=== PATIENT | male | born 1940 | race Caucasian/White ===

== ENCOUNTER 2018-01-12 05:22 | Inpatient (IN) | payer MEDICARE ==
[2018-01-12] MEDS ORDERED: Nitroglycerin 2% Ointment 1 INCH/1 GM Packet ONE (05:53)
[2018-01-12 06:07] LABS: #Eosinphils 0.2 thou/uL (0.0-0.7); #Lymphocytes 1.1 thou/uL (1.20-3.40); #Monocytes 0.7 thou/uL (0.11-0.59); #Neutrophils 4.1 thou/uL (1.40-6.50); %Basophils 0.3 % (0.0-1.0); %Eosinophils 3.5 % (0.0-10.0); %Lymphocytes 17.7 % (21.0-51.0); %Monocytes 11.8 % (0.0-10.0); %Neutrophils 66.7 % (42.0-75.0); Hemoglobin 13.9 g/dL (14.0-18.0); Mean Corpuscular HGB CONC 32.9 g/dL (32.0-36.0); Mean Corpuscular Hemoglobin 30.7 pg (27.0-31.0); Mean Corpuscular Volume 93.2 fl (80.0-94.0); Mean Platelet Volume 7.2 fL (7.4-10.4); Platelet Count 155 thou/uL (130-400); RBC Distribution Width 12.8 % (11.5-14.5); Red Blood Cell (RBC) Count 4.52 mill/uL (4.70-6.10); White Blood Cell (WBC) Count 6.2 thou/uL (4.8-10.8)
[2018-01-12 06:11] LABS: PTT 30.8 SEC (22.9-36.1); Prothrombin Time 13.7 SEC (12.0-14.7)
[2018-01-12 06:25] LABS: ALT (SGPT) 12 U/L (8-55); AST (SGOT) 12 U/L (5-34); Albumin 3.7 g/dL (3.4-4.8); Alkaline Phosphatase 51 U/L (40-150); Anion Gap 11 mmol/L (10-20); BUN (Urea Nitrogen) 21 mg/dL (8.4-25.7); Bilirubin, Total 0.4 mg/dL (0.2-1.2); CK (CPK) 29 U/L (30-200); Calc. Creatinine Clearance 0 mL/min (70-130); Calcium 9.3 mg/dL (7.8-10.44); Carbon Dioxide 29 mmol/L (23-31); Chloride 104 mmol/L (98-107); Estimated GFR-MDRD 53; Globulin 3.3 g/dL (2.4-3.5); Glucose 146 mg/dL (83-110); Sodium 140 mmol/L (136-145)
[2018-01-12 06:30] LABS: Troponin I Less than 0.010 ng/mL (< 0.028)
--- NOTE | 2018-01-12 07:58 | CT ---
CT ARTERIOGRAM CHEST WITH IV CONTRAST AND 3D MIP IMAGING: Date: 01/12/18 HISTORY: Chest pain. Elevated D-Dimer. FINDINGS: There is good contrast opacification of the pulmonary arteries. Contrast has not yet reached the aort a. There is normal branching of the great vessels and arterial calcification. Within the superior segment of right lower lobe, a lobular 2.5 cm spiculated mass is of soft tissue d ensity and approaches the posterolateral pleura. A 0.5 cm noncalcified nodule is present within the r ight upper lobe. Peripheral interstitial thickening is present. No pleural fluid or pneumothorax. Non enlarged lymph nodes are scattered about the mediastinum. IMPRESSION: 1. No CT evidence of pulmonary embolus. 2. Large spiculated mass superior segment right lower lobe. Evidence of neoplasm, primary versus met astatic. Tiny right upper lobe nodule. Please consider pulmonary medicine evaluation. 3. Evidence of interstitial lung disease. 4. Atherosclerosis. POS: [facility]
--- NOTE | 2018-01-12 08:56 | RAD ---
CHEST 1 VIEW: Date: 01/12/18 HISTORY: Chest pain. FINDINGS: Cardiac silhouette is magnified by projection. Pulmonary vasculature is upper limits of normal. Retic ulonodular interstitial prominence is present throughout each lung. Mediastinum is midline with aorti c calcification. Oval opacity at the right mid to lower chest correlates with a spiculated mass on moran bsequently performed CT arteriogram chest. No evidence of pneumothorax. IMPRESSION: 1. Right lower lobe lung mass. Please see separate report regarding CT exam. 2. COPD. 3. Atherosclerosis. POS: [facility]
[2018-01-12] MEDS ORDERED: Dextrose 50% Abboject 50 ML SYRINGE SLOW IVP PRN (09:26)
[2018-01-12] MEDS ORDERED: Milk Of Magnesia 30 ML UDCUP PO PRN (09:26)
[2018-01-12] MEDS ORDERED: Nitroglycerin 0.4 MG TAB (25 Tab Bottle) SL PRN (09:26)
[2018-01-12] MEDS ORDERED: Acetaminophen 325 MG TAB PO PRN (09:26)
[2018-01-12] MEDS ORDERED: Loperamide HCl 2 MG CAP PO PRN (09:26)
[2018-01-12] MEDS ORDERED: HumaLOG 300 UNITS/3 ML VIAL SC PRN ×2 (09:26)
[2018-01-12] MEDS ORDERED: hydrALAZINE 20 MG/ML VIAL SLOW IVP PRN (09:26)
[2018-01-12] MEDS ORDERED: Eucerin (Mineral Oil/Petrolatum,White) 30 gm Jar TOP PRN (09:26)
[2018-01-12] MEDS ORDERED: Zolpidem Tartrate 5 MG TAB PO PRN (09:26)
[2018-01-12] MEDS ORDERED: Ondansetron ODT 4 MG TAB PO PRN (09:26)
[2018-01-12] MEDS ORDERED: Diabetic Tussin 200 MG/10 ML UDCUP PO PRN (09:26)
[2018-01-12] MEDS ORDERED: Mag-Al 1200 mg/1200 mg/30 ML UDCUP PO PRN (09:26)
[2018-01-12] MEDS ORDERED: Chloraseptic Spray 180 ml Bottle PO PRN (09:26)
[2018-01-12] MEDS ORDERED: Senokot 8.6 MG TAB PO PRN (09:26)
[2018-01-12] MEDS ORDERED: Sodium Chloride 0.65% Nasal 44 ML BOT EA NARE PRN (09:26)
[2018-01-12] MEDS ORDERED: Artificial Tears 18 DROP/0.9 ML EA EYE PRN (09:26)
[2018-01-12] MEDS ORDERED: Loratadine 10 MG TAB PO PRN (09:26)
[2018-01-12] MEDS ORDERED: Ondansetron HCl/PF 4 MG/2 ML Vial IVP PRN (09:26)
[2018-01-12] MEDS ORDERED: Dextrose 5% in Water 1,000 ML IV PRN (09:26)
[2018-01-12 09:45] LABS: Troponin I Less than 0.010 ng/mL (< 0.028)
[2018-01-12 09:51] LABS: Cardiac Risk 4.4 (Less than 4.5)
[2018-01-12] MEDS ORDERED: Aspirin 325 MG TAB PO SCH (10:00)
--- NOTE | 2018-01-12 11:45 | HP ---
PRIMARY CARE PHYSICIAN: Dr. David Bajwa. REASON FOR ADMISSION: Left shoulder pain, rule out acute coronary syndrome, new diagnosis of right l ower lobe lung mass. HISTORY OF PRESENT ILLNESS: A 77-year-old male who has underlying history of peripheral vascular dis ease with carotid stenosis as well as abdominal aortic aneurysm, hypertension, diabetes type 2, dysli pidemia, and coronary artery disease who presented to emergency room with complaint of left shoulder pain for the last 2-3 days. The patient was having persistently left shoulder pain about 2-3/10 in i ntensity, so he was ignoring his symptoms. The patient's shoulder pain has nothing to do with the mo vement of the shoulder. He was experiencing dull aching pain all the time, he was able to sleep, but whenever he was waking up, he was again noticing left shoulder pain. Last night, he was having more severe pain about 7/10 in intensity as well as left shoulder pain radiated to elbow level and that i s why he was concerned about heart and decided to come to the emergency room for evaluation. Patient noted improvement with nitroglycerin. He did not have any chest pain, shortness of breath, palpitat ion, fever, chills, cough, trauma. He denies any UTI symptoms. He denies any constipation, diarrhea , melena or hematochezia. He denies any headache, focal motor or sensory symptoms. He denies any paresthesia. He denies any slurred speech. He denies any flu-like symptoms. In the emergency room, the patient was given nitroglycerin and he had improvement in the left shoulde r pain and considering that, we are trying to admit this patient in hospital for observation to rule out cardiac etiology. He had elevated D-dimer and that is why CT angio was done, which showed right lower lobe lung mass. Patient denies any cough. He denies any hemoptysis. He denies any weight loss. He denies any pleur itic chest pain. PAST MEDICAL HISTORY: Diabetes type 2, hypertension, dyslipidemia, coronary artery disease, history of CVA, history of abdominal aortic aneurysm, history of carotid stenosis, sensorineural deafness, be nign enlargement of prostate. PAST SURGICAL HISTORY: Carotid artery stent placement and subsequently carotid artery rupture requir ed surgery, cardiac catheterization with stent placement. PAST PSYCHIATRIC HISTORY: Reviewed and negative. SOCIAL HISTORY: Patient was a heavy smoker in the past, but he quit smoking about 3 years ago. He w as also alcoholic, but he quit drinking for about 5 years. He lives in [facility] living [facility]. He currently denies any smoking. He denies any alcohol abuse. He denies any other illici t drug abuse. He is and lives with his . FAMILY HISTORY: No strong family history of premature coronary artery disease, stroke or cancer. EMERGENCY ROOM COURSE: Patient is given nitropatch. CURRENT HOME MEDICATIONS: Aspirin 81 mg p.o. daily, lisinopril 20 mg p.o. daily, Plavix 75 mg p.o. d aily, Lipitor 20 mg p.o. daily, metoprolol tartrate 25 mg twice daily, glipizide 7.5 mg p.o. daily, F mel 0.4 mg p.o. daily, vitamin B1 100 mg p.o. daily, vitamin D3 1000 unit p.o. daily. ALLERGIES: No known drug allergy. REVIEW OF SYSTEMS: The following complete review of systems was negative, unless otherwise mentioned in the HPI or below: Constitutional: Weight loss or gain, ability to conduct usual activities. Skin: Rash, itching. Eyes: Double vision, pain. ENT/Mouth: Nose bleeding, neck stiffness, pain, tenderness. Cardiovascular: Palpitations, dyspnea on exertion, orthopnea. Respiratory: Shortness of breath, wheezing, cough, hemoptysis, fever or night sweats. Gastrointestinal: Poor appetite, abdominal pain, heartburn, nausea, vomiting, constipation, or diarr hea. Genitourinary: Urgency, frequency, dysuria, nocturia. Musculoskeletal: Pain, swelling. Neurologic/Psychiatric: Anxiety, depression. Allergy/Immunologic: Skin rash, bleeding tendency. Please see my HPI for pertinent positive and negative. All other review of system reviewed and negat manuel except as mentioned in HPI. PHYSICAL EXAMINATION: VITAL SIGNS: Currently, blood pressure 146/84, pulse 70, respiratory rate 18, temperature 98.2, satu ration 96% on room air, weight 83.9 kilograms. GENERAL: Patient is currently alert, awake, no obvious acute distress. HEENT: Head is normocephalic, atraumatic. Eyes: Pupils round, reactive to light. Extraocular musc le intact. ENT: Oropharynx within normal limits. Moist mucous membranes. No oral lesion, no phary ngeal erythema, no exudate. NECK: Supple, no JVD, no thyromegaly, no carotid bruit, no jugular venous distention. LUNGS: Clear to auscultation without any rhonchi or rales. CARDIAC: S1, S2 regular. No murmur elicited, no gallop, no rub. ABDOMEN: Soft, bowel sounds present, nontender, nondistended. No organomegaly, no mass, no suprapub ic tenderness. BACK: Unremarkable, no CVA tenderness. EXTREMITIES: Upper extremity, passive movement of all joints are normal. Lower extremity, no edema . Good peripheral pulsation. SKIN: No skin rash. HEMATOLOGIC: No lymphadenopathy. PSYCHIATRIC: Normal affect. NEUROLOGIC: Nonfocal examination. The patient moves all 4 limbs. Plantar bilateral flexor. PSYCHIATRIC: Normal affect. SIGNIFICANT LABORATORY DATA AND IMAGING: EKG showing normal sinus rhythm, nonspecific ST-T changes, incomplete right bundle branch block pattern. Chest x-ray showed right lower lobe lung mass, COPD, a therosclerosis. CT angio, negative for pulmonary embolism, large spiculated mass in the right lower lobe, interstitial lung disease, atherosclerosis. CBC: WBC 6.2, hemoglobin 13.9, platelet 155. INR 1.0. D-dimer 4.60. BMP: Sodium 140, potassium 4 .0, chloride 104, carbon dioxide 29, anion gap 11, BUN 21, creatinine 1.31, glucose 146, calcium 9.3. LFT: AST 12, ALT 12, alkaline phosphatase 51, albumin 3.7. BNP 279.8, CK 29, CK-MB 2.0, troponin I less than 0.010 and then less than 0.010. Lipase 17, triglyceride 110, cholesterol 141, LDL 87, HD L 32. ASSESSMENT AND PLAN: 1. Left shoulder pain, rule out acute coronary syndrome. This patient had improvement in left shoul ramandeep pain after nitroglycerin. The patient does not have any real chest pain. His left shoulder pain is not related with movement of the shoulder joint, does not suspect any local musculoskeletal patho logy. At this point, because of multiple risk factors for coronary artery disease and atypical prese ntation, we will keep this patient in hospital for observation. We will do serial cardiac enzymes an d rule out acute coronary syndrome. The patient is over concerned about cardiac etiology and that is why we will perform a Cardiolite stress test today to rule out underlying silent ischemia. We have checked lipid profile and that is optimum. Patient will be continued with aspirin and nitroglycerin on p.r.n. basis. 2. Right lower lobe lung mass. Patient has spiculated lung mass. He is a heavy smoker in the past. At this point, the patient is asymptomatic, but needs to be worked up and he will need a follow up with the awning erector while in hospital, we will consult Pulmonary for their opinion. Further inves tigation will defer to them. The patient and family member notified about this diagnosis and advised them to follow up with Pulmonary after discharge as well. 3. Peripheral vascular disease. Patient has history of carotid stenosis as well as abdominal aortic aneurysm. The patient has followup appointment with Dr. Wojciech Ferguson next week and he has instruct ed to maintain follow up with him for further evaluation. He may need a repeat CT angiography to see the status of his carotid stenosis. 4. Diabetes type 2. We will continue glipizide 7.5 mg p.o. daily while in hospital. We will contin ue insulin as per sliding scale per protocol. Diabetic diet will be given. 5. Dyslipidemia. Lipid profile is at normal limit. Continue Lipitor 20 mg p.o. at bedtime. 6. Chronic kidney disease stage 3. We will monitor renal function and avoid nephrotoxin agent. 7. Elevated D-dimer, but negative CT angio and ruled out pulmonary embolism. 8. Elevated BNP. Patient will need echocardiography to assess ejection fraction and other structura l abnormality. 9. Benign enlargement of prostate. We will continue Flomax 0.4 mg p.o. daily. 10. Deep venous thrombosis prophylaxis not needed, because we are expecting discharge in 24-48 hours . 11. Gastrointestinal prophylaxis, Pepcid 20 mg p.o. b.i.d. 12. Code status: The patient is FULL CODE. The patient's is surrogate decision maker. Disposition and plan based on clinical course and above-mentioned investigation result as well as pul monary recommendation.
[2018-01-12 12:18] LABS: Troponin I Less than 0.010 ng/mL (< 0.028)
[2018-01-12] MEDS ORDERED: ADENOSINE 60 MG/20 ML VIAL ONE (13:23)
[2018-01-12] MEDS ORDERED: Prevnar 13-Val Conj/PF 0.5 ML SYRINGE IM ONE (14:30)
[2018-01-12] MEDS ORDERED: ISOVUE-370 76%-LOCM 1 ML ONE (14:35)
[2018-01-12] MEDS: HYDROcodone/Acetaminophen 5/325 mg Tablet PO PRN ×2 (14:53→21:06)
[2018-01-12] MEDS ORDERED: Lisinopril 20 MG TAB PO SCH (18:15)
[2018-01-12] MEDS ORDERED: Metoprolol Tartrate 25 MG TAB PO SCH (18:15)
--- NOTE | 2018-01-12 18:15 | NM ---
RADIONUCLIDE STRESS AND REST MYOCARDIAL PERFUSION SCAN WITH CT ATTENUATION CORRECTION WITH SPECT IMAG ING LEFT VENTRICULAR WALL MOTION EVALUATION AND EJECTION FRACTION 01/12/18 HISTORY: Chest pain. FINDINGS: Adenosine protocol was used. There is heterogeneous uptake of radiotracer throughout the left ventric ular myocardium. A moderate sized area of moderately diminished radiotracer uptake involves the infer olateral wall on the stress and rest images and shows some decrease in motion. No reversibility is ev ident. QGS analysis of gated SPECT images estimates left ventricular ejection fraction at 56%. IMPRESSION: 1. Small to moderate sized areas of scarring at the inferolateral wall without evidence of ische jelani. 2. Preserved LVEF. POS: [facility]
[2018-01-12] MEDS: Nitroglycerin 2% Ointment 1 INCH/1 GM Packet TOP SCH (21:07)
[2018-01-12] MEDS: Famotidine 20 MG TAB PO SCH (21:07)
[2018-01-13 03:44] VITALS: BMI 28.7
[2018-01-13] MEDS: Nitroglycerin 2% Ointment 1 INCH/1 GM Packet TOP SCH (05:41)
[2018-01-13] MEDS: HYDROcodone/Acetaminophen 5/325 mg Tablet PO PRN (08:59)
[2018-01-13] MEDS ORDERED: Lisinopril 20 MG TAB PO SCH (09:00)
[2018-01-13] MEDS ORDERED: Metoprolol Tartrate 25 MG TAB PO SCH (09:00)
[2018-01-13] MEDS ORDERED: hydrALAZINE 25 MG TAB PO SCH (09:00)
[2018-01-13] MEDS ORDERED: Aspirin 325 MG TAB PO SCH (09:00)
[2018-01-13] MEDS: Famotidine 20 MG TAB PO SCH (09:01)
--- NOTE | 2018-01-13 09:45 | PDOC.PN ---
- Subjective Encounter Start Date: 01/13/18 Encounter Start Time: 08:30 - Objective Resuscitation Status: Resuscitation Status FULL:Full Resuscitation MAR Reviewed: Yes Vital Signs & Weight: Vital Signs (12 hours) Temp Pulse Resp BP BP Pulse Ox 01/13/18 09:01 83 165/83 H 01/13/18 08:58 165/83 H 01/13/18 08:00 96.9 F L 83 14 165/83 H 96 01/13/18 04:00 97.6 F 55 L 16 175/76 H 96 01/13/18 00:00 97.7 F 56 L 16 153/75 H 94 L Weight Weight 189 lb I&O: 01/12/18 01/13/18 01/14/18 06:59 06:59 06:59 Intake Total 1740 Output Total 400 Balance 1340 Result Diagrams: 01/12/18 05:55 01/12/18 05:55 Additional Labs: Accuchecks 01/13/18 01/12/18 06:04 20:03 POC Glucose 172 H 231 H Radiology Reviewed by me: Yes (stress test is normal) EKG Reviewed by me: Yes (nsr) Phys Exam - Physical Examination Constitutional: NAD HEENT: PERRLA, moist MMs, sclera anicteric Neck: no JVD, supple Respiratory: no wheezing, no rales, no rhonchi Cardiovascular: RRR, no significant murmur, no rub Gastrointestinal: soft, non-tender, no distention, positive bowel sounds Musculoskeletal: no edema, pulses present Neurological: non-focal, normal sensation, moves all 4 limbs Lymphatic: no nodes Psychiatric: normal affect, A&O x 3 Skin: no rash, normal turgor Dx/Plan (1) Left shoulder pain Code(s): M25.512 - PAIN IN LEFT SHOULDER Status: Acute (2) Right lower lobe lung mass Code(s): R91.8 - OTHER NONSPECIFIC ABNORMAL FINDING OF LUNG FIELD Status: Acute (3) BPH (benign prostatic hyperplasia) Code(s): N40.0 - BENIGN PROSTATIC HYPERPLASIA WITHOUT LOWER URINRY TRACT SYMP Status: Chronic (4) CAD (coronary artery disease) Code(s): I25.10 - ATHSCL HEART DISEASE OF [place] CORONARY ARTERY W/O ANG PCTRS Status: Chronic (5) Diabetes type 2, controlled Code(s): E11.9 - TYPE 2 DIABETES MELLITUS WITHOUT COMPLICATIONS Status: Chronic (6) Dyslipidemia Code(s): E78.5 - HYPERLIPIDEMIA, UNSPECIFIED Status: Chronic (7) Hypertension Code(s): I10 - ESSENTIAL (PRIMARY) HYPERTENSION Status: Chronic (8) PAD (peripheral artery disease) Code(s): I73.9 - PERIPHERAL VASCULAR DISEASE, UNSPECIFIED Status: Chronic - Plan cont current plan of care * medication reviewed as below * symptomatic treatment * add hydralazin and imdur for better BP control * if pulmonary not planning to do any procedure, he is stable for discharge later today * medication reviewed as below * symptomatic treatment. Review of Systems - Review of Systems ENT: negative: Ear Pain, Ear Discharge, Nose Pain, Nose Discharge, Nose Congestion, Mouth Pain, Mouth Swelling, Throat Pain, Throat Swelling, Other Respiratory: negative: Cough, Dry, Shortness of Breath, Hemoptysis, SOB with Excertion, Pleuritic Pain, Sputum, Wheezing Cardiovascular: negative: chest pain, palpitations, orthopnea, paroxysmal nocturnal dyspnea, edema, light headedness, other Gastrointestinal: negative: Nausea, Vomiting, Abdominal Pain, Diarrhea, Constipation, Melena, Hematochezia, Other Genitourinary: negative: Dysuria, Frequency, Incontinence, Hematuria, Retention , Other Musculoskeletal: negative: Neck Pain, Shoulder Pain, Arm Pain, Back Pain, Hand Pain, Leg Pain, Foot Pain, Other Skin: negative: Rash, Lesions, Aditya, Bruising, Other - Medications/Allergies Allergies/Adverse Reactions: Allergies Allergy/AdvReac Type Severity Reaction Status Date / Time No Known Drug Allergies Allergy Verified 01/12/18 09:50 Medications: Current Medications Acetaminophen (Tylenol) 650 mg PO Q4H PRN PRN Reason: Headache/Fever or Pain Hydrocodone Bitart/Acetaminophen ([place] 5/325) 1 tab PO Q4H PRN PRN Reason: Moderate Pain (4-6) Last Admin: 01/13/18 08:59 Dose: 1 tab Al Hydroxide/Mg Hydroxide (Maalox) 30 ml PO Q6H PRN PRN Reason: Heartburn or Indigestion Artificial Tears (Tears Naturale) 0 drop EA EYE PRN PRN PRN Reason: Dry Eyes Aspirin (Aspirin) 325 mg PO DAILY LATHA Last Admin: 01/13/18 08:58 Dose: 325 mg Dextrose/Water (Dextrose 50%) 25 gm SLOW IVP PRN PRN PRN Reason: Hypoglycemia Famotidine (Pepcid) 20 mg PO BID [facility] Last Admin: 01/13/18 09:01 Dose: 20 mg Glucagon (Glucagon) 1 mg IM PRN PRN PRN Reason: Hypoglycemia Guaifenesin (Robitussin Sf) 200 mg PO Q4H PRN PRN Reason: Cough Hydralazine HCl (Apresoline) 10 mg SLOW IVP Q4H PRN PRN Reason: Systolic BP > 180 Hydralazine HCl (Apresoline) 25 mg PO BID [facility] Last Admin: 01/13/18 09:01 Dose: 25 mg Dextrose/Water (D5w) 1,000 mls @ 0 mls/hr IV .Q0M PRN; As Directed PRN Reason: Hypoglycemia Insulin Human Lispro (Humalog) 0 units SC .MODERATE SLIDING SC PRN PRN Reason: Moderate Correctional Scale Insulin Human Lispro (Humalog) 0 units SC .BEDTIME SLIDING SC PRN PRN Reason: Bedtime Correctional Scale Lisinopril (Zestril) 20 mg PO BID [facility] Last Admin: 01/13/18 08:58 Dose: 20 mg Loperamide HCl (Imodium) 2 mg PO PRN PRN PRN Reason: Diarrhea/Loose Stools Loratadine (Claritin) 10 mg PO DAILYPRN PRN PRN Reason: Sinus Symptoms Magnesium Hydroxide (Milk Of Magnesium) 30 ml PO DAILYPRN PRN PRN Reason: Constipation Metoprolol Tartrate (Lopressor) 25 mg PO BID [facility] Last Admin: 01/13/18 08:59 Dose: 25 mg Mineral Oil/White Petrolatum (Eucerin Cream) 0 gm TOP BIDPRN PRN PRN Reason: Dry Skin Nitroglycerin (Nitrostat) 0.4 mg SL Q5MIN PRN PRN Reason: Chest Pain Nitroglycerin (Nitro-Bid 2% Ointment) 0.5 inch TOP Q8HR [facility] Last Admin: 01/13/18 05:41 Dose: 0.5 inch Ondansetron HCl (Zofran Odt) 4 mg PO Q6H PRN PRN Reason: Nausea/Vomiting Ondansetron HCl (Zofran) 4 mg IVP Q6H PRN PRN Reason: Nausea/Vomiting Phenol (Chloraseptic [place] 180 Ml Bot) 0 ml PO PRN PRN PRN Reason: Sore Throat Senna (Senokot) 2 tab PO HSPRN PRN PRN Reason: Constipation Sodium Chloride ([place] Nasal [place] 0.65%) 0 ml EA NARE QIDPRN PRN PRN Reason: Nasal Congestion Sodium Chloride (Flush - Normal Saline) 10 ml IVF PRN PRN PRN Reason: Saline Flush Last Admin: 01/13/18 09:02 Dose: 10 ml Zolpidem Tartrate (Ambien) 5 mg PO HSPRN PRN PRN Reason: Insomnia
--- NOTE | 2018-01-13 11:04 | DIS ---
PRIMARY CARE PHYSICIAN: David Bajwa M.D. DATE OF ADMISSION: 01/12/2018 DATE OF DISCHARGE: 01/13/2018 DISCHARGE DISPOSITION: Home. PRIMARY DISCHARGE DIAGNOSES: 1. Left shoulder pain, ruled out acute coronary syndrome. 2. Right lower lobe lung mass. SECONDARY DISCHARGE DIAGNOSES: Benign enlargement of prostate, coronary artery disease, peripheral a rterial disease, diabetes type 2, dyslipidemia, hypertension. PRIMARY PROCEDURE/OPERATION: None. RADIOLOGICAL INVESTIGATION: Chest x-ray showed right lower lobe lung mass. CT angiography negative for pulmonary embolism, it did show a spiculated lung mass. Stress test negative for any ischemia, i t showed only scar from previous CT. SIGNIFICANT LABORATORY DATA: Hemoglobin 13.9. INR 1.0. D-dimer 4.60. Cardiac enzymes negative x3. LDL 87. Creatinine 1.31. Electrolytes and LFT normal. DISCHARGE MEDICATIONS: Aspirin 81 mg p.o. daily, Lipitor 20 mg p.o. daily, vitamin D3 5000 unit p.o. at bedtime, Plavix 75 mg p.o. daily, vitamin B12 1000 mcg p.o. daily, glipizide 7.5 mg p.o. b.i.d., hydralazine 25 mg p.o. b.i.d., Imdur 30 mg p.o. daily, lisinopril 20 mg p.o. b.i.d., metoprolol 25 mg p.o. b.i.d., multivitamin 1 tablet p.o. daily, Flomax 0.4 mg p.o. at bedtime. CONTRAINDICATIONS: None. CODE STATUS: FULL CODE. INPATIENT CONSULTANTS: Dr. Mills was consulted while in hospital. TEST RESULTS PENDING ON DISCHARGE: None. ALLERGIES: No known drug allergy. DISCHARGE PLAN: Post hospital, the patient is instructed to follow up with Dr. Mills for evaluation o f lung mass. The patient is also instructed to follow with primary care physician. Patient already has appointment with Dr. Wojciech Ferguson for his carotid disease. HOSPITAL COURSE: A 77-year-old male who was having 3 days of left shoulder pain and it was pro-radia ting to elbow level and he was concerned about cardiac etiology and that is why he came to emergency room for evaluation. The patient's blood pressure was also running high at home. We did a necessary workup in the emergency room. His routine blood tests including cardiac enzymes were negative, but he had elevated D-dimer and that is why we did CT angio. Before that, we also did a chest x-ray that showed a suspicious right lower lobe lung mass that confirmed after CT angio, but no pulmonary embol ism. The patient was kept in hospital. We started his home medication and controlled his blood pres sure with adding new medication. The patient underwent stress test and that came back normal. At this point, we are waiting for Dr. Mills to see this patient for right lower lobe lung mass. If th ere is no plan while inpatient workup, then we will consider discharging him home with the above-ment ioned medication, but he will need outpatient follow up with gum rolling machine tender for further evaluation and treatment. Plan of care discussed with a family member. All new medication prescriptions sent to pharmacy.
--- NOTE | 2018-01-13 11:10 | CON ---
DATE OF CONSULTATION: 01/12/2018 HISTORY OF PRESENT ILLNESS: Fabricio Patel is a 77-year-old gentleman, who was admitted to the hospital with several-day history of left shoulder and arm pain. He denied any chest pain, denied any shortness of breath, coughing, wheezing, orthopnea, or PND. He has had previous history of known coronary artery disease , sees local [facility]edic [facility], had a [place] with multiple cardiac stents at least 5 apparently. His primary care doctor is Dr. Bajwa. He said he has smoked up to 2 packs a day, quit smoking 10 years ago, history of pneumonia, but no history of TB or asthma. CT chest angio was done, which shows a right lower lung mass, reason for consultation. Denies any weight loss, coughing, wheezing , orthopnea, or PND. He says on most days he can walk at least a block without getting markedly short of breath. He has history of significant peripheral vascular disease with carotid stenosis. PAST MEDICAL HISTORY: Diabetes, coronary artery disease, CVA, multiple apparently. PAST SURGICAL HISTORY: Included surgery on aortic aneurysm, stents x5; coronary artery disease with unresectable; history of sleep apnea, noncompliant. He was told by ENT physician, he could not wear a CPAP because of his nose issues. SOCIAL HISTORY: He is retired from the police department. He lives with a girlfriend over a year. MEDICATIONS: List of medicines, aspirin, lisinopril 20, Plavix 75, atorvastatin 20, metoprolol 25 two a day, glipizide 5, tamsulosin 0.4, vitamin D , iron. FAMILY HISTORY: Unremarkable. REVIEW OF SYSTEMS: A 10-point negative. PHYSICAL EXAMINATION: VITAL SIGNS: Sats are 98% on 2 liters, pulse 80 bp 120\74 respiratory rate of 18. CHEST: No wheezing or crackles. CARDIAC: Normal S1, normal S2. No gallops. ABDOMEN: Soft, no masses. NEUROLOGIC: He is awake, alert, responsive, moves all 4 extremities. EXTREMITIES: No edema. LABORATORY DATA: White count 6000, H&H and 13 and 42, platelet count is normal. Electrolytes are normal. Creatinine 1.3. IMAGING: His x-ray was reviewed, which shows some chronic scarring bibasally. There is ill-defined density in the right mid chest. \\ A CAT scan showed a right middle lung mass with some bibasilar interstitial markings. IMPRESSION AND PLAN: 1. Shoulder pain. 2. Coronary artery disease. 3. History of previous multiple cardiac stents. 4. Renal failure. 5. Sleep apnea. 6. Tobacco abuse. 7. Multiple cerebrovascular accidents. 8. Right lung mass, probably chronic obstructive pulmonary disease. Once workup for his chest pain, shoulder pain is resolved. Outpatient PET scan. Further recommendations after above. Discussed with the family as they arrive. This is a consultation note, 70 minutes of which 50% was spent on direct patient care. DOT
[2018-01-13 14:11] VITALS: BP 146/67; TEMP 97.8
--- NOTE | 2018-01-13 15:12 | PRG ---
DATE OF SERVICE: 01/13/2018 SUBJECTIVE: This morning, he is doing well. No chest pain, no shortness of breath. OBJECTIVE: VITAL SIGNS: His blood pressure is 165/83, pulse 83, sats are 96% on room air, and respirations 18. CHEST: Chest reveals decreased breath sounds, no wheezing. CARDIAC: Normal S1, S2, no gallops. ABDOMEN: Soft. No mass. IMPRESSION: 1. Chest pain. Stress test showed normal ejection fraction. 2. 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 PLAN: From pulmonary standpoint, he can discharge home. Follow up on an outpatient basis next week. He had scheduled an outpatient PET scan.
--- NOTE | 2018-01-15 13:35 | STRESS ---
Acquisition Time: 2018-01-12 15:37:54 Total Exercise Time: 00:04:00 Test Indications: CHEST PAIN Medications: Protocol: ADENOSINE Max HR: 095 BPM 65% of Pred: 144 BPM Max BP: 152/092 mmHG Max Work Load: 1.0 METS RESTING ECG: NORMAL SINUS RHYTHM AT 60 BPM WITH NON-SPECIFIC ST AND T-WAVE CHANGES SYMPTOMS: WORSENING OF LEFT ARM PAIN NORMAL BP RESPONSE ECTOPY: OCCASIONAL PAC'S ECG STRESS: NO SIGNIFICANT CHANGES INTERPRETATION: AWAIT NUCLEAR IMAGES FOR DEFINITIVE DIAGNOSIS Confirmed by OTILIO TEAGUE ([id number]) on 01/15/2018 1:35:12 PM Referred By: Michael BARLOW Confirmed By:OTILIO TEAGUE
== END 2018-01-13 14:30 | disposition home or self-care (01) | DRG 556 ==
LOC: ERS 05:22 → ERHOLD 08:51 → 2NO 12:52
PROVIDERS: ADMIT Internal Medicine; ATTEND Internal Medicine
DX: M25.512 Pain in left shoulder (principal); E11.22 Type 2 diabetes mellitus with diabetic chronic kidney disease; E11.51 Type 2 diabetes mellitus with diabetic peripheral angiopathy without gangrene; R91.8 Other nonspecific abnormal finding of lung field; I25.10 Atherosclerotic heart disease of native coronary artery without angina pectoris; N40.0 Benign prostatic hyperplasia without lower urinary tract symptoms; E78.5 Hyperlipidemia, unspecified; I10 Essential (primary) hypertension; I25.2 Old myocardial infarction; Z86.73 Personal history of transient ischemic attack (TIA), and cerebral infarction without residual deficits; Z87.891 Personal history of nicotine dependence; F10.21 Alcohol dependence, in remission; Z87.01 Personal history of pneumonia (recurrent); G47.30 Sleep apnea, unspecified; I12.9 Hypertensive chronic kidney disease with stage 1 through stage 4 chronic kidney disease, or unspecified chronic kidney disease; N18.3 Chronic kidney disease, stage 3 (moderate)
CPT/HCPCS: 36415; 36416; 71045; 71275; 78452; 80053; 80061; 82553; 83690; 83880; 84484; 85025; 85379; 85610; 85730; 93005; 93017; 93306; 94760; A9500; J0153

== ENCOUNTER 2018-01-24 12:13 | Outpatient (CLI) | payer MEDICARE ==
--- NOTE | 2018-01-24 16:05 | PET ---
NUCLEAR MEDICINE FDG PET CT: (Positron Emission Tomography) DATE: 01/24/18 HISTORY: 78-year-old male with primary lung cancer of the right lower lobe. COMPARISON: None. TECHNIQUE: IV injection F-18 Fluorodeoxyglucose (FDG) dose: 12.0 mCi PET and attenuation-correction CT performed from skull base to proximal thighs. FINDINGS: SUV (standard uptake value) numbers given are maximum SUV's: All SUVs are QCLR. The spiculated, noncalcified pulmonary mass in the superior segment of the right lower lobe measures approximately 2.5 cm in oblique AP dimension x 2 cm oblique transverse dimension, as measured on the image slices of the CT angiogram of 01/12/18. On the coronal reconstruction, the greatest oblique transverse dimension is approximately 3 cm. It is FDG-avid, with SUV of 7.0. There are no FDG-avid right hilar lymph nodes or mediastinal lymph nodes. There are no other FDG-avid suspicious lesions elsewhere in the chest, abdomen, pelvis, or neck. There is an endograft within an infrarenal abdominal aortic aneurysm measuring 6.7 cm oblique AP x 5. 4 cm transverse. Right thyroid nodule is not FDG-avid. IMPRESSION: 1. FDG-avid right lower lobe solitary pulmonary spiculated mass is evidence for primary lung cancer. 2. No evidence of metastatic hilar or mediastinal lymph nodes, and no distant metastasis. 3. T1c N0 M0, Stage IA. 4. A 6.7 cm abdominal aortic aneurysm containing an endograft. The caliber of the aneurysm is very large for one treated with an endograft, unless the endograft placement was very recent. If it was n ot very recent, then further workup for endoleak is recommended. EVER Tellez POS: [facility]
== END 2018-01-24 12:14 | disposition home or self-care (01) ==
LOC: PET 12:13
PROVIDERS: ATTEND Internal Medicine Pulmonary Disease
DX: C34.31 Malignant neoplasm of lower lobe, right bronchus or lung (principal); E11.9 Type 2 diabetes mellitus without complications; I71.4 Abdominal aortic aneurysm, without rupture
CPT/HCPCS: 78815; A9552

== ENCOUNTER 2018-02-12 14:00 | Inpatient (IN) | payer MEDICARE ==
[2018-02-13] MEDS ORDERED: CEFAZOLIN/Water 2 GM/20 ML SYRINGE ONE (06:20)
[2018-02-13] MEDS ORDERED: Fentanyl 250 MCG/5 ML VIAL ONE (06:57)
[2018-02-13] MEDS ORDERED: Promethazine HCl 25 MG/ML VIAL ONE (06:57)
[2018-02-13] MEDS ORDERED: Bupivacaine 0.25% HCL 30 ML VIAL ONE ×3 (07:18→11:49)
[2018-02-13] MEDS ORDERED: PHENYLEPHRINE-NS 100 MCG/ML 10 ML SYRINGE ONE ×2 (07:18→14:43)
[2018-02-13] MEDS ORDERED: Phenylephrine HCL 10 MG/ML VIAL ONE (07:18)
[2018-02-13] MEDS ORDERED: diphenhydrAMINE 50 MG/ML VIAL IVP PRN (07:30)
[2018-02-13] MEDS ORDERED: diphenhydrAMINE 50 MG/ML VIAL IM PRN (07:30)
[2018-02-13] MEDS ORDERED: traMADol HCl 50 MG TAB PO PRN ×2 (07:30)
[2018-02-13] MEDS ORDERED: diphenhydrAMINE 25 MG CAP PO PRN (07:30)
[2018-02-13] MEDS ORDERED: fentaNYL Citrate/PF 1,250 MCG, Bupivacaine 25 ML in Sodium Chloride 0.9% 250 ML 200 ML EPIDURAL SCH (07:30)
[2018-02-13] MEDS ORDERED: Promethazine HCl 25 MG/ML VIAL IM PRN (07:30)
[2018-02-13] MEDS ORDERED: Zolpidem Tartrate 5 MG TAB PO PRN (07:30)
[2018-02-13] MEDS ORDERED: HYDROcodone/Acetaminophen 5/325 mg Tablet PO PRN ×4 (07:30→12:55)
[2018-02-13] MEDS ORDERED: Naloxone HCl 0.4 mg/ml Vial IVP PRN (07:30)
[2018-02-13] MEDS ORDERED: Naloxone HCl 0.4 mg/ml Vial IV PRN (07:30)
[2018-02-13] MEDS ORDERED: Hydrocerin (Eucerin) Cream 120 gm Jar TOP PRN (07:30)
[2018-02-13] MEDS ORDERED: Bupivacaine 0.25% 10 ML VIAL EPIDURAL PRN (07:30)
[2018-02-13] MEDS ORDERED: Ondansetron HCl/PF 4 MG/2 ML Vial IVP PRN ×3 (07:30→12:55)
[2018-02-13] MEDS ORDERED: Promethazine HCl 25 MG SUPP PR PRN (07:30)
[2018-02-13] MEDS ORDERED: Promethazine HCl 25 MG/ML VIAL SLOW IVP PRN (10:04)
[2018-02-13] MEDS ORDERED: Morphine Sulfate 2 MG/ML SYRINGE SLOW IVP PRN (10:04)
--- NOTE | 2018-02-13 11:47 | RAD ---
CHEST ONE VIEW: HISTORY: Chest surgery. Followup. COMPARISON: 02/12/2018 FINDINGS: The cardiac silhouette is magnified and enlarged. The pulmonary vasculature are at the upper limits of normal. The mediastinum is midline with aortic calcification and a right subclavian central venou s catheter. Thoracostomy tubes over the right chest are present at the apex and base. Minimal resid ual right apical pneumothorax. IMPRESSION: 1. Postoperative changes, right chest. 2. Lines and tubes as detailed above. 3. Minimal right apical pneumothorax. POS: [facility]
[2018-02-13] MEDS ORDERED: Fentanyl 100 MCG/2 ML VIAL ONE (11:49)
[2018-02-13] MEDS ORDERED: Nitroglycerin 50 MG/250 ML BOT 250 ML IVPB PRN (12:55)
[2018-02-13] MEDS ORDERED: Phenylephrine 10 MG/NS 250 ML 250 ML IVPB PRN (12:55)
--- NOTE | 2018-02-13 13:03 | OP ---
DATE OF PROCEDURE: 02/13/2018 PREOPERATIVE DIAGNOSIS: Right lower lobe lung mass, PET positive. POSTOPERATIVE DIAGNOSIS: Right lower lobe lung mass, PET positive. PROCEDURE: Right lower lobectomy with mediastinal lymph node dissection. SURGEON: Wojciech Ferguson M.D. ANESTHESIA: General endotracheal. ESTIMATED BLOOD LOSS: 50 mL DRAINS: A 24-Guinean chest tubes x2. SPECIMENS: 1. Right lower lobe -- frozen section of the mass revealed non-small cell lung cancer with negative bronchial margin. 2. Levels 8, 9 and 10R lymph nodes. DESCRIPTION OF PROCEDURE: After consent was obtained, the patient was brought to the operating room and placed in supine on the operating room table. Appropriate anesthetic monitor was placed and gene ral endotracheal anesthesia was induced. Right subclavian central line was placed and secured this w ith a silk suture. Artery line was flushed with heparin saline. Patient was then placed in left lat eral decubitus position. Joints were appropriately padded. SCDs were used. Right chest wall was pr epped and draped in usual sterile fashion. Posterolateral thoracotomy incision was made and dissecti on through latissimus obtained with electrocautery. The serratus was spared. Serratus fascia was in cised. The fifth interspace was entered and ribs spread. Chest was explored. There were no chest w all masses. Right lower lobe mass was easily palpable. Hilum was released. Level 9 and 8 lymph nod es were taken and sent for routine pathology exam. On mobilizing the hilum, there was a level 10 lym ph node packet that was taken and sent for routine pathology. The pulmonary vein was isolated and di vided with vascular stapler. The posterior fissure was completed with a AILYN stapler. The two pulmon charline artery branches into the lower lobe were divided with vascular stapler. Anterior fissure was com pleted with electrocautery. The lower lobe bronchus was clamped with the stapler and the upper and m iddle lobes inflated nicely. Stapler was fired and specimen removed. Bronchial stump was tested und er 40 cm of water pressure and there was good water tight seal. Chest was copiously irrigated with water. A 24-Guinean chest tubes were placed x2. The ribs were ilana pproximated with #1 Vicryl. The lung was inflated and filled the chest cavity nicely. Pericostal moran tures were then tied. Wounds were irrigated, closed in multiple layers, and Dermabond applied to the skin. The patient was awakened, extubated, and transferred to recovery room in stable condition. N eedle, sponge, and instrument counts were all reported as correct at the end of the procedure.
[2018-02-13 13:18] VITALS: BMI 28.8
[2018-02-13] MEDS: Sodium Chloride 0.9% 1,000 ML IV SCH ×2 (13:34→21:49)
[2018-02-13] MEDS: hydrALAZINE 20 MG/ML VIAL SLOW IVP PRN (13:47)
[2018-02-13] MEDS ORDERED: Glycopyrrolate 0.2 MG/ML 5 ML SYRINGE ONE (14:43)
[2018-02-13] MEDS ORDERED: Dexamethasone 20 MG/5 ML VIAL ONE (14:43)
[2018-02-13] MEDS ORDERED: Lidocaine 1% PF 5 ML VIAL ONE (14:43)
[2018-02-13] MEDS ORDERED: ePHEDrine/0.9% NaCl/PF SYRINGE 50 mg/10 ml ONE (14:43)
[2018-02-13] MEDS ORDERED: PROPOFOL 200 MG/20 ML VIAL ONE (14:43)
[2018-02-13] MEDS: CEFAZOLIN/Water 2 GM/20 ML SYRINGE SLOW IVP SCH ×2 (16:20→21:49)
[2018-02-13] MEDS: Insulin Regular 300 UNITS/3 ML VIAL SC PRN ×2 (17:29→21:47)
[2018-02-13] MEDS: Tamsulosin HCl 0.4 MG CAP PO SCH (20:15)
[2018-02-13] MEDS: glipiZIDE 10 MG TAB PO SCH (20:15)
[2018-02-13] MEDS ORDERED: Prevnar 13-Val Conj/PF 0.5 ML SYRINGE IM ONE (21:00)
[2018-02-14 04:28] LABS: #Monocytes 1.5 thou/uL (0.11-0.59); #Neutrophils 9.1 thou/uL (1.40-6.50); %Basophils 0.1 % (0.0-1.0); %Eosinophils 0.4 % (0.0-10.0); %Lymphocytes 8.7 % (21.0-51.0); %Monocytes 12.7 % (0.0-10.0); %Neutrophils 78.1 % (42.0-75.0); Hemoglobin 13.6 g/dL (14.0-18.0); Mean Corpuscular HGB CONC 32.8 g/dL (32.0-36.0); Mean Corpuscular Hemoglobin 31.1 pg (27.0-31.0); Mean Corpuscular Volume 94.9 fl (80.0-94.0); Platelet Count 160 thou/uL (130-400); RBC Distribution Width 13.3 % (11.5-14.5); Red Blood Cell (RBC) Count 4.36 mill/uL (4.70-6.10); White Blood Cell (WBC) Count 11.6 thou/uL (4.8-10.8)
[2018-02-14 04:41] LABS: Anion Gap 9 mmol/L (10-20); BUN (Urea Nitrogen) 19 mg/dL (8.4-25.7); Calc. Creatinine Clearance 74 mL/min (70-130); Calcium 8.4 mg/dL (7.8-10.44); Carbon Dioxide 27 mmol/L (23-31); Chloride 103 mmol/L (98-107); Estimated GFR-MDRD 71; Glucose 144 mg/dL (83-110); Potassium 4.1 mmol/L (3.5-5.1); Sodium 135 mmol/L (136-145)
[2018-02-14] MEDS: CEFAZOLIN/Water 2 GM/20 ML SYRINGE SLOW IVP SCH (04:56)
--- NOTE | 2018-02-14 05:42 | CON ---
DATE OF CONSULTATION: 02/13/2018 HISTORY OF PRESENT ILLNESS: Mr. Patel is a very pleasant gentleman who had lobectomy today. He was followed by Dr. Bajwa and apparently presented last month with a chest mass when he was admitted from the emergency room with left shoulder pain. A nuclear stress test was done during that admission which showed scarring, but no ischemia and preserved ventricular function. It does not appear that he was seen by cardiology during that admission. CT imaging showed a mass in the superior segment of the right lower lobe. An increase in interstitial markings was noted on CT. He subsequently has undergone lobectomy. PAST MEDICAL HISTORY: Remarkable for; 1. Diabetes. 2. History of coronary artery disease. 3. History of CVA in the past. 4. History of aortic aneurysm endograft complicated surgery at an outside institution. 5. History of multiple vascular stents. 6. History of sleep apnea, not wearing CPAP. 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 Quit smoking three years ago. Quit drinking 5 years ago. He lives in assisted living. FAMILY HISTORY: Negative for lung disease in early age. MEDICATIONS: Prior to admission he was on aspirin, lisinopril, Plavix, Lipitor , metoprolol, glipizide, Flomax. REVIEW OF SYSTEMS: He just extubated and he is still sleepy, so a 10-point review of systems essentially negative, did not have any chest pain. PHYSICAL EXAMINATION: GENERAL: Pt is pleasant gentleman VITAL SIGNS: blood pressure 137/63 this evening, heart rate 72, respiratory rate 15, oximetry is 97. HEENT: Pupils are equal. Sclerae are anicteric. NECK: Supple. LUNGS: Clear with equal breath sounds. HEART: Regular rhythm. S1 and S2 are normal. ABDOMEN: Soft and nontender. EXTREMITIES: He is moving all 4 extremities. Without clubbing, cyanosis, or edema. IMAGING: Chest x-ray shows expected postop changes, tiny apical pneumothorax on the right. IMPRESSION: 1. Status post lobectomy. 2. History of multiple vascular procedures with multiple vascular complications. 3. History of myocardial infarction in the past, confirmed by a scar on a recent stress test. PLAN: Continue current normal postop care. Appears to be stable at time of consultation in the ICU. This is a 50-minute consult greater than 50% of the time was spent on coordinating care in the unit. DOT
--- NOTE | 2018-02-14 08:14 | RAD ---
AP VIEW OF THE CHEST: INDICATION: Status post thoracotomy. FINDINGS: Small right apical pneumothorax is present. There is increased bibasilar airspace opacity which may be related to subsegmental atelectasis; however, bibasilar opacities related to aspiration or pneumon ia are not entirely excluded. Pneumonia is felt to be less likely. There is a suspicion of small bi lateral pleural effusions. There is moderate cardiomegaly. There is mild pulmonary vascular congest ion which has worsened. Osseous structures are unchanged. IMPRESSION: 1. Findings of cardiomegaly and pulmonary vascular congestion may reflect volume overload or CHF. T here are small bilateral pleural effusions now present with bibasilar airspace opacities most suspici ous for atelectasis; however, the bilateral lower lobe opacities may be related to aspiration. Tera nued followup is recommended. 2. Small right apical pneumothorax persists. Right-sided thoracostomy tubes and right subclavian ce ntral venous catheter is unchanged. POS: [facility]
[2018-02-14] MEDS: Multivitamin W/ Minerals 1 TAB PO SCH (08:48)
[2018-02-14] MEDS: Atorvastatin Calcium 20 MG TAB PO SCH (08:48)
[2018-02-14] MEDS: Aspirin 81 mg Enteric Coated Tablet PO SCH (08:48)
[2018-02-14] MEDS: glipiZIDE 10 MG TAB PO SCH ×2 (08:48→20:34)
[2018-02-14] MEDS: Cyanocobalamin (Vitamin B-12) 1,000 MCG TAB PO SCH (08:48)
[2018-02-14] MEDS: hydrALAZINE 25 MG TAB PO SCH ×2 (11:26→20:33)
[2018-02-14] MEDS: Metoprolol Tartrate 25 MG TAB PO SCH ×2 (11:27→20:33)
[2018-02-14] MEDS: Insulin Regular 300 UNITS/3 ML VIAL SC PRN (11:28)
--- NOTE | 2018-02-14 11:41 | PRG ---
DATE OF SERVICE: 02/14/2018 Mr. Patel is doing well. He is sitting up in the chair and actually asked if he could stay sitting up in the chair as long as possible. PHYSICAL EXAMINATION: VITAL SIGNS: Blood pressure 126/65, heart rate 77, respiratory rate 19, oximetry is 98. LUNGS: Clear. CARDIOVASCULAR: Regular rhythm. ABDOMEN: Soft. EXTREMITIES: Without asymmetry. LABORATORY DATA: White count 11.6, hemoglobin 13.6, platelets 160. Sodium 135, potassium 4.1, chloride 103, bicarb 27, BUN 19, creatinine 1.02. IMPRESSION: Status post lobectomy. Awaiting pathology. Clinically doing well.
[2018-02-14] MEDS: Tamsulosin HCl 0.4 MG CAP PO SCH (20:33)
[2018-02-14] MEDS: Sodium Chloride 0.9% 1,000 ML IV SCH (22:07)
[2018-02-15] MEDS: Insulin Regular 300 UNITS/3 ML VIAL SC PRN ×3 (06:23→21:44)
[2018-02-15] MEDS ORDERED: Furosemide 40 MG/4 ML VIAL SLOW IVP SCH (08:00)
[2018-02-15] MEDS ORDERED: Ketorolac Tromethamine 30 MG/ML VIAL IVP SCH (08:30)
[2018-02-15] MEDS: Aspirin 81 mg Enteric Coated Tablet PO SCH (08:35)
[2018-02-15] MEDS: glipiZIDE 10 MG TAB PO SCH ×2 (08:35→21:43)
[2018-02-15] MEDS: Atorvastatin Calcium 20 MG TAB PO SCH (08:35)
[2018-02-15] MEDS: Multivitamin W/ Minerals 1 TAB PO SCH (08:35)
[2018-02-15] MEDS: Cyanocobalamin (Vitamin B-12) 1,000 MCG TAB PO SCH (08:35)
[2018-02-15] MEDS: Lisinopril 20 MG TAB PO SCH ×2 (08:38→21:44)
--- NOTE | 2018-02-15 09:31 | RAD ---
FRONTAL VIEW CHEST: COMPARISON: Previous day. INDICATION: Status post thoracotomy, followup. FINDINGS: Right subclavian catheter is again seen. Patchy bibasilar opacities persist. There remains enlargem ent of the cardiomediastinal silhouette and pulmonary vasculature. Trace linear density related to jerome hartley's known minimal right apical pneumothorax is again seen. IMPRESSION: Stable chest. POS: [facility]
[2018-02-15] MEDS: hydrALAZINE 25 MG TAB PO SCH ×2 (12:00→21:44)
[2018-02-15] MEDS: Metoprolol Tartrate 25 MG TAB PO SCH ×2 (12:01→21:44)
[2018-02-15] MEDS: Ketorolac Tromethamine 30 MG/ML VIAL IVP SCH ×2 (13:28→18:14)
[2018-02-15] MEDS: Tamsulosin HCl 0.4 MG CAP PO SCH (21:43)
--- NOTE | 2018-02-15 22:20 | PRG ---
DATE OF SERVICE: 02/15/2018 SUBJECTIVE: Fabricio Patel did well overnight. His chest tubes to water seal. He had an intermitten t air leak. OBJECTIVE: VITAL SIGNS: Heart rate is 85, respiratory rate is 21, oximetry is 98% on 2 liters. LUNGS: Clear and equal breath sounds on both sides. HEART: Regular rhythm. ABDOMEN: Soft and nontender. EXTREMITIES: Without clubbing, cyanosis, or edema. Chest radiograph showed atelectasis of the lung bases, tiny apical pneumothorax was seen. IMPRESSION: 1. Status post lobectomy. Pathology results came back today, tumors 2.5 cm, it is a T1 tumor. All of his margins were clear. All his lymph nodes were negative. Stage IA tumor, so it should be surgi truman cured. 2. Squamous cell carcinoma. Once in my opinion he is stable, move out to the Critical Care Unit, th is completely defer to CT surgery.
[2018-02-16] MEDS: Ketorolac Tromethamine 30 MG/ML VIAL IVP SCH ×4 (00:28→18:26)
[2018-02-16] MEDS: Insulin Regular 300 UNITS/3 ML VIAL SC PRN ×4 (06:15→21:27)
[2018-02-16] MEDS: Multivitamin W/ Minerals 1 TAB PO SCH (08:37)
[2018-02-16] MEDS: Cyanocobalamin (Vitamin B-12) 1,000 MCG TAB PO SCH (08:37)
[2018-02-16] MEDS: Aspirin 81 mg Enteric Coated Tablet PO SCH (08:38)
[2018-02-16] MEDS: Atorvastatin Calcium 20 MG TAB PO SCH (08:38)
[2018-02-16] MEDS: Metoprolol Tartrate 25 MG TAB PO SCH ×2 (08:38→21:26)
[2018-02-16] MEDS: glipiZIDE 10 MG TAB PO SCH ×2 (08:38→21:24)
[2018-02-16] MEDS: Lisinopril 20 MG TAB PO SCH ×2 (08:39→21:26)
[2018-02-16] MEDS: hydrALAZINE 25 MG TAB PO SCH ×2 (08:39→21:25)
--- NOTE | 2018-02-16 09:39 | RAD ---
ONE VIEW CHEST: COMPARISON: 02/15/18. HISTORY: Status post thoracotomy. FINDINGS: Stable right-sided central venous catheter. Interval removal of the right-sided chest tubes. No def inite pneumothorax. Chronic changes in the lung parenchyma are noted. Stable configuration of the c ardiac silhouette. Atherosclerosis is redemonstrated. IMPRESSION: Interval removal of right-sided chest tubes. Otherwise, no significant change. POS: [facility]
[2018-02-16] MEDS ORDERED: HYDROmorphone 2 MG TAB PO PRN ×2 (10:31→10:32)
[2018-02-16] MEDS: Acetaminophen 1,000 MG in Premix Bag 1 BAG IVPB SCH ×2 (11:35→18:26)
--- NOTE | 2018-02-16 21:08 | PRG ---
DATE OF SERVICE: 02/16/2018 SUBJECTIVE: Mr. Patel's chest tubes are out, his epidurals are out. OBJECTIVE: VITAL SIGNS: He is afebrile, heart rate is 75, respiratory rate is 14, oximetry is 95% on 2 liters. LUNGS: Free of wheezes. HEART: Regular rhythm. ABDOMEN: Soft. IMAGING: Chest radiograph this morning shows no pneumothorax. IMPRESSION: Status post lobectomy for a stage I nonsmall cell lung cancer. PLAN: Continue postop care. He is stable to move to a surgical anderson.
[2018-02-16] MEDS: Tamsulosin HCl 0.4 MG CAP PO SCH (21:27)
[2018-02-17] MEDS: Ketorolac Tromethamine 30 MG/ML VIAL IVP SCH ×4 (00:14→18:09)
[2018-02-17] MEDS: Acetaminophen 1,000 MG in Premix Bag 1 BAG IVPB SCH ×4 (00:14→18:09)
[2018-02-17] MEDS: Insulin Regular 300 UNITS/3 ML VIAL SC PRN ×2 (06:39→11:03)
[2018-02-17] MEDS: Cyanocobalamin (Vitamin B-12) 1,000 MCG TAB PO SCH (08:21)
[2018-02-17] MEDS: Metoprolol Tartrate 25 MG TAB PO SCH ×2 (08:21→20:21)
[2018-02-17] MEDS: glipiZIDE 10 MG TAB PO SCH ×2 (08:21→20:20)
[2018-02-17] MEDS: Multivitamin W/ Minerals 1 TAB PO SCH (08:22)
[2018-02-17] MEDS: Lisinopril 20 MG TAB PO SCH ×2 (08:22→20:21)
[2018-02-17] MEDS: hydrALAZINE 25 MG TAB PO SCH ×2 (08:22→20:21)
[2018-02-17] MEDS: Aspirin 81 mg Enteric Coated Tablet PO SCH (08:23)
[2018-02-17] MEDS: Atorvastatin Calcium 20 MG TAB PO SCH (08:23)
[2018-02-17] MEDS ORDERED: Mag-Al 1200 mg/1200 mg/30 ML UDCUP PO PRN (10:21)
--- NOTE | 2018-02-17 11:45 | RAD ---
CHEST 1 VIEW: COMPARISON: 02/16/18. History Status post thoracotomy. FINDINGS: Stable central venous catheter. Persistent opacification of the lung parenchyma. No pneumothorax. IMPRESSION: No significant interval change. POS: [facility]
--- NOTE | 2018-02-17 14:16 | PRG ---
DATE OF SERVICE: 02/17/2018 SUBJECTIVE: Mr. Patel did well overnight. Only problem is he became confused at night. His signi ficant other says he does this at home occasionally. OBJECTIVE: VITAL SIGNS: His heart rate is 88, blood pressure is 131/65, respiratory rate is in the teens. LUNGS: Remarkable for equal breath sounds. HEART: Regular rhythm. ABDOMEN: Soft and nontender. EXTREMITIES: Without asymmetry. I went and order for Seroquel at night. Hopefully, this will help. LABORATORY DATA: There is no new lab other than glucoses. He is not hypoglycemic. IMPRESSION: 1. Stage I non-small cell lung cancer resected. 2. Sundowning with underlying dementia. PLAN: He is stable to move out of the critical care again. He was moved back in after he got [facility] last night. He can move over to the Intermediate Care Unit.
[2018-02-17] MEDS: Tamsulosin HCl 0.4 MG CAP PO SCH (20:20)
[2018-02-18] MEDS: Ketorolac Tromethamine 30 MG/ML VIAL IVP SCH ×3 (00:17→11:06)
[2018-02-18] MEDS: Acetaminophen 1,000 MG in Premix Bag 1 BAG IVPB SCH ×2 (00:17→05:32)
[2018-02-18] MEDS: Metoprolol Tartrate 25 MG TAB PO SCH ×2 (08:30→21:47)
[2018-02-18] MEDS: Lisinopril 20 MG TAB PO SCH ×2 (08:30→21:47)
[2018-02-18] MEDS: Cyanocobalamin (Vitamin B-12) 1,000 MCG TAB PO SCH (08:30)
[2018-02-18] MEDS: Multivitamin W/ Minerals 1 TAB PO SCH (08:31)
[2018-02-18] MEDS: Atorvastatin Calcium 20 MG TAB PO SCH (08:31)
[2018-02-18] MEDS: hydrALAZINE 25 MG TAB PO SCH ×2 (08:31→21:47)
[2018-02-18] MEDS: glipiZIDE 10 MG TAB PO SCH ×2 (08:31→21:47)
[2018-02-18] MEDS: Aspirin 81 mg Enteric Coated Tablet PO SCH (08:31)
--- NOTE | 2018-02-18 09:30 | PRG ---
DATE OF SERVICE: 02/18/2018 SUBJECTIVE: This morning, he is awake, alert and responsive. He looks weak. OBJECTIVE: VITAL SIGNS: Sats are 99 on 2 liters, respirations 15, temperature 97, blood pressure 138/71. CHEST: Reveals bilateral crackles. CARDIAC: Normal S1, S2, no gallops. ABDOMEN: Soft, no masses. X-RAY FINDINGS: Chest x-ray shows right lower lung infiltrate. IMPRESSION: Right lower lobe squamous cell carcinoma, negative lymph nodes. Tobacco abuse. PLAN: Continue neb treatments, supportive care. Empiric antibiotics. We will follow.
--- NOTE | 2018-02-18 09:34 | RAD ---
PORTABLE AP CHEST: Date: 02/18/18 HISTORY: Post thoracotomy. COMPARISON: 02/17/18. FINDINGS: Right subclavian central venous catheter remains in place and unchanged in position. No pneumothorax is seen. There are increased interstitial opacities again present at each lung base. Overall, similar to comparison studies. Minimal pleural based density is seen at the right lung apex, but again, no p neumothorax is appreciated. Cardiac silhouette is enlarged. Vascular calcification seen in a tortuous thoracic aorta. IMPRESSION: 1. Stable bibasilar interstitial opacities, which could be related to bibasilar pneumonia. These int erstitial opacities were not present on study of 02/12/18. The pulmonary nodule at the right lung bas e noted on that study on 02/12/18 is not well seen on this exam due to interstitial opacities. 2. Minimal right apical pleural based density, but no pneumothorax is present. POS: [facility]
[2018-02-18] MEDS: Doxycycline 100 MG CAP PO SCH ×2 (09:41→21:46)
[2018-02-18] MEDS: Insulin Regular 300 UNITS/3 ML VIAL SC PRN ×2 (11:06→16:58)
[2018-02-18] MEDS: Tamsulosin HCl 0.4 MG CAP PO SCH (21:47)
[2018-02-19] MEDS: hydrALAZINE 20 MG/ML VIAL SLOW IVP PRN (02:38)
--- NOTE | 2018-02-19 09:11 | PRG ---
DATE OF SERVICE: 02/19/2018 This morning he is awake, responsive. He is better, less short of breath. He is weak. His daughter is here. I discussed with her at length. Father is doing quite well.. PHYSICAL EXAMINATION: VITAL SIGNS: Blood pressure 116/81, pulse is 82, respirations 14, sats 96%, temperature 98. CHEST: Minimal crackles. CARDIAC: Normal S1, S2, no gallops. ABDOMEN: Soft, no masses. LABORATORY AND X-RAY FINDINGS: Chest x-ray shows small right-sided postsurgical infiltrate. IMPRESSION: 1. Status post right lower lobectomy. 2. Chronic obstructive pulmonary disease. 3. Possible pneumonia. 4. Severe deconditioning. PLAN: Continue PT and supportive care. Home with home health versus rehab.
--- NOTE | 2018-02-19 09:31 | RAD ---
PORTABLE AP CHEST: Date: 02/19/18 HISTORY: Post thoracotomy. Follow-up evaluation. COMPARISON: 02/18/18. FINDINGS: Right subclavian central venous catheter remains in place and unchanged in position. Cardiac silhouet te is magnified by projection, but does appear enlarged. Pulmonary vasculature is at the upper limits of normal. Again noted are bibasilar interstitial opacities, not significantly changed when compared to the prior exam. No other interval change. IMPRESSION: Stable chest. POS: [facility]
[2018-02-19] MEDS: Aspirin 81 mg Enteric Coated Tablet PO SCH (09:59)
[2018-02-19] MEDS: Cyanocobalamin (Vitamin B-12) 1,000 MCG TAB PO SCH (09:59)
[2018-02-19] MEDS: hydrALAZINE 25 MG TAB PO SCH ×2 (09:59→21:22)
[2018-02-19] MEDS: Metoprolol Tartrate 25 MG TAB PO SCH ×2 (09:59→21:22)
[2018-02-19] MEDS: Multivitamin W/ Minerals 1 TAB PO SCH (09:59)
[2018-02-19] MEDS: glipiZIDE 10 MG TAB PO SCH ×2 (09:59→21:23)
[2018-02-19] MEDS: Lisinopril 20 MG TAB PO SCH ×2 (09:59→21:22)
[2018-02-19] MEDS: Doxycycline 100 MG CAP PO SCH ×2 (09:59→21:22)
[2018-02-19] MEDS: Atorvastatin Calcium 20 MG TAB PO SCH (09:59)
[2018-02-19] MEDS: Tamsulosin HCl 0.4 MG CAP PO SCH (21:22)
[2018-02-20] MEDS: Insulin Regular 300 UNITS/3 ML VIAL SC PRN ×2 (06:31→11:24)
[2018-02-20] MEDS: Atorvastatin Calcium 20 MG TAB PO SCH (08:54)
[2018-02-20] MEDS: Doxycycline 100 MG CAP PO SCH (08:54)
[2018-02-20] MEDS: Lisinopril 20 MG TAB PO SCH (08:54)
[2018-02-20] MEDS: glipiZIDE 10 MG TAB PO SCH (08:54)
[2018-02-20] MEDS: hydrALAZINE 25 MG TAB PO SCH (08:54)
[2018-02-20] MEDS: Cyanocobalamin (Vitamin B-12) 1,000 MCG TAB PO SCH (08:55)
[2018-02-20] MEDS: Aspirin 81 mg Enteric Coated Tablet PO SCH (08:55)
[2018-02-20] MEDS: Metoprolol Tartrate 25 MG TAB PO SCH (08:55)
[2018-02-20] MEDS: Multivitamin W/ Minerals 1 TAB PO SCH (08:55)
--- NOTE | 2018-02-20 09:08 | RAD ---
PORTABLE CHEST 1 VIEW: DATE: 02/20/18. TIME: 4:07 a.m. HISTORY: Status post thoracotomy. FINDINGS/IMPRESSION: No significant interval change is seen since the previous day's exam with allowances for differences in technique. POS: [facility]
--- NOTE | 2018-02-20 09:57 | PRG ---
DATE OF SERVICE: 02/20/2018 Mr. Patel is seen today in the hospital. He is doing quite well. PHYSICAL EXAMINATION: VITAL SIGNS: His blood pressure 163/77, pulse is 84, temperature 98, sats are 90% on room air. GENERAL: He denies any pain. He is just feeling weak. CHEST: Chest revealed decreased breath sounds, no wheezing. CARDIAC: Normal S1, S2, no gallops. ABDOMEN: Soft, no masses. IMPRESSION: Status post right lower lobectomy, carcinoma. Negative lymph nodes. PLAN: The patient wants to go to the rehab. Awaiting placement. In the meantime, we will continue neb treatments, empiric antibiotics. I will follow.
[2018-02-20 11:59] VITALS: TEMP 98.6
[2018-02-20 13:21] VITALS: BP 165/79
--- NOTE | 2018-02-20 19:20 | DIS ---
DATE OF ADMISSION: 02/13/2018 DATE OF TRANSFER TO REHAB: 02/20/2018 DIAGNOSIS: Right lower lobe lung cancer - pathologic exam shows a 2.4 cm invasive squamous cell carc inoma - poorly differentiated, this is T1b M0 N0 stage IA. PROCEDURE: Right thoracotomy with right lower lobectomy and mediastinal lymph node dissection. DESCRIPTION OF HOSPITAL STAY: Mr. Patel was admitted for elective right lower lobectomy. He has d one well. He has been weak and slow to mobilize after surgery. He lives alone at the [facility], although his girlfriend lives next door. She is able to help care for him. In her opinion , but she is not able to provide high enough level of care at this point and he would benefit from re habilitation. He is being transferred there for further strengthening prior to being sent back to [facility]. DISCHARGE MEDICATIONS: Unchanged with the exception of the addition of Ultram 50 mg 1-2 p.o. q.6 kitty rs p.r.n. pain.
--- NOTE | 2018-02-27 08:15 | PQF ---
DAYNA JIMENES CHARLES H MD [id number] CLINICAL DOCUMENTATION CLARIFICATION FORM: POST DISCHARGE Addendum to original discharge summary date: 02/20/2018 DATE: 02/27/2018 ATTN: Dr. Ferguson Please exercise your independent, professional judgment in responding to the clarification form. Clinical indicators are provided on the bottom of this form for your review Please check appropriate box(s) to clarify if the following diagnosis has been ruled in or ruled out: Pneumonia [ ] Ruled in diagnosis [ ] Continue to treat, postoperative complication [ ] Continue to treat, not a postoperative complication [ ] Resolved [ ] Ruled out diagnosis [ ] Cannot rule out diagnosis [ ] Other diagnosis (please specify) [x ] Unable to determine In addition, please specify: Present on Admission (POA): [ ] Yes [ ] No [ ] Unable to determine For continuity of documentation, please document condition throughout progress notes and discharge summary. Thank You. CLINICAL INDICATORS - SIGNS / SYMPTOMS / LABS Per 02/18 progress note: Chest x-ray shows right lower lung infiltrate. Empiric antibiotics. We will follow. Per 02/19 progress note: Minimal crackles. Chest x-ray shows small right-sided postsurgical infiltrate. Possible pneumonia. RISK FACTORS (per operative report/progress notes) Stat post right lower lobectomy with mediastinal lymph node dissection. Right lower lobe lung cancer. TREATMENTS Per 02/18 and 02/20 progress notes: Nebulizer treatments. Empiric antibiotics. (This form is maintained as a part of the permanent medical record) 2014 [employer] All Rights Reserved [email or web address] [email or web address] [phone] DOT
== END 2018-02-20 15:17 | DRG 163 ==
LOC: SURG A 02-13 05:36 → CCU 02-13 12:46 → SJJU 02-16 13:44 → CCU 02-16 20:14 → IMCU/EMU 02-17 11:52
PROVIDERS: ADMIT Thoracic Surgery (Cardiothoracic Vascular Surgery); ATTEND Thoracic Surgery (Cardiothoracic Vascular Surgery)
PROC: 0BTF0ZZ Resection of Right Lower Lung Lobe, Open Approach (ICD-10-PCS; principal; 2018-02-13)
PROC: 07T70ZZ Resection of Thorax Lymphatic, Open Approach (ICD-10-PCS; 2018-02-13)
PROC: 0W9900Z Drainage of Right Pleural Cavity with Drainage Device, Open Approach (ICD-10-PCS; 2018-02-13)
DX: C34.31 Malignant neoplasm of lower lobe, right bronchus or lung (principal); J18.9 Pneumonia, unspecified organism; J93.82 Other air leak; F05 Delirium due to known physiological condition; J44.9 Chronic obstructive pulmonary disease, unspecified; G47.30 Sleep apnea, unspecified; E11.9 Type 2 diabetes mellitus without complications; I10 Essential (primary) hypertension; I25.10 Atherosclerotic heart disease of native coronary artery without angina pectoris; Z86.73 Personal history of transient ischemic attack (TIA), and cerebral infarction without residual deficits; Z87.891 Personal history of nicotine dependence; Z79.84 Long term (current) use of oral hypoglycemic drugs; Z79.02 Long term (current) use of antithrombotics/antiplatelets; Z79.82 Long term (current) use of aspirin; Z79.899 Other long term (current) drug therapy
CPT/HCPCS: 36416; 71045; 71046; 80048; 85025; 85027; 86850; 86900; 86901; 88305; 88307; 88309; 88313; 88331; 88332; 88341; 88342; 93005; 93010; 94640; G8978-GP-CL; G8979-GP-CJ; G8987-GO-CJ; G8988-GO-CI; J0131; J0360; J1100; J1642; J1885; J1940; J2001; J2370; J2550; J2704; J3010; J3490; J7050; J7620; S0020

== ENCOUNTER 2018-03-18 12:46 | Outpatient (CLI) | payer MEDICARE ==
--- NOTE | 2018-03-18 14:31 | RAD ---
CHEST 2 VIEWS: Date: 03/18/18 HISTORY: Dyspnea. Lung mass. COMPARISON: 02/27/18. FINDINGS: Cardiac silhouette and pulmonary vasculature are unremarkable. Postoperative changes right hilum with atelectasis at the right base. No evidence of pneumothorax. Mediastinum midline with aortic calcific ation. IMPRESSION: 1. Postoperative changes, stable. Improved aeration of the lungs. 2. Atherosclerosis. POS: [facility]
== END 2018-03-18 12:47 | disposition home or self-care (01) ==
LOC: RAD 12:46
PROVIDERS: ATTEND Thoracic Surgery (Cardiothoracic Vascular Surgery)
DX: R91.8 Other nonspecific abnormal finding of lung field (principal); I70.90 Unspecified atherosclerosis; Z98.890 Other specified postprocedural states
CPT/HCPCS: 71046

== ENCOUNTER 2018-06-17 12:56 | Outpatient (CLI) | payer MEDICARE ==
--- NOTE | 2018-06-17 14:37 | RAD ---
CHEST 2 VIEWS: COMPARISON: 03/18/18. HISTORY: Dyspnea. FINDINGS: Atherosclerosis of the aorta. Enlarged cardiac silhouette. The pulmonary vessels and hilum are norm al. Stable opacification of the right lung base. Stable hyperinflation with chronic changes. There appears to be a focal nodular density in the right mid lung, measuring 1.2 cm in the craniocaudal di mension. IMPRESSION: Right mid lung nodule. Better interrogation with CT is recommended. CODE T POS: [facility]
== END 2018-06-17 12:57 | disposition home or self-care (01) ==
LOC: RAD 12:56
PROVIDERS: ATTEND Thoracic Surgery (Cardiothoracic Vascular Surgery)
DX: R91.8 Other nonspecific abnormal finding of lung field (principal); I63.20 Cerebral infarction due to unspecified occlusion or stenosis of unspecified precerebral arteries; R91.1 Solitary pulmonary nodule
CPT/HCPCS: 71046

== ENCOUNTER 2018-09-18 13:27 | Outpatient (CLI) | payer MEDICARE ==
--- NOTE | 2018-09-18 14:10 | RAD ---
TWO VIEWS OF THE CHEST: COMPARISON: 06/17/2018. HISTORY: Cerebral infarction. FINDINGS: Two views of the chest show a normal-size cardiomediastinal silhouette with atherosclerotic calcifica tions in the aorta. There appears to be a small right pleural effusion. No focal infiltrates are se en. IMPRESSION: Small right pleural effusion. POS: [facility]
== END 2018-09-18 13:28 | disposition home or self-care (01) ==
LOC: RAD 13:27
PROVIDERS: ATTEND Thoracic Surgery (Cardiothoracic Vascular Surgery)
DX: I63.20 Cerebral infarction due to unspecified occlusion or stenosis of unspecified precerebral arteries (principal); J90 Pleural effusion, not elsewhere classified
CPT/HCPCS: 71046

== ENCOUNTER 2018-12-23 13:51 | Outpatient (CLI) | payer MEDICARE ==
--- NOTE | 2018-12-23 15:49 | RAD ---
TWO VIEW CHEST: HISTORY: Right lung neoplasm. COMPARISON: 09/18/2018 FINDINGS: Elevation of the right hemidiaphragm with blunting of the right CP angle is again noted. This is a s table finding. Small, persistent right effusion cannot be excluded. The lung young are otherwise clear. Heart size is within the normal range. Aortic calcification is again noted. IMPRESSION: Right basilar opacification and blunting of the right costophrenic angle, possibly chronic pleural ch jailyn or small effusion, stable from prior examination. POS: [facility]
== END 2018-12-23 13:52 | disposition home or self-care (01) ==
LOC: RAD 13:51
PROVIDERS: ATTEND Thoracic Surgery (Cardiothoracic Vascular Surgery)
DX: C34.31 Malignant neoplasm of lower lobe, right bronchus or lung (principal); R91.8 Other nonspecific abnormal finding of lung field
CPT/HCPCS: 71046

== ENCOUNTER 2019-07-09 08:56 | Outpatient (CLI) | payer MEDICARE ==
--- NOTE | 2019-07-09 10:58 | RAD ---
CHEST TWO VIEWS: 07/09/2019 PROVIDED CLINICAL HISTORY: Lung mass. COMPARISON: 12/23/2018 FINDINGS: The cardiac and mediastinal silhouette is unchanged in appearance. Vascular calcification is again no trini. Emphysematous changes are redemonstrated. Right pleural density and right infrahilar opacity abbey ear similar to the prior examination. There is no evidence for pneumothorax. IMPRESSION: Stable radiographic appearance of the chest. POS: [facility]
== END 2019-07-09 08:57 | disposition home or self-care (01) ==
LOC: RAD 08:56
PROVIDERS: ATTEND Thoracic Surgery (Cardiothoracic Vascular Surgery)
DX: R91.8 Other nonspecific abnormal finding of lung field (principal)
CPT/HCPCS: 71046

== ENCOUNTER 2020-03-29 12:51 | Outpatient (CLI) | payer MEDICARE ==
--- NOTE | 2020-03-29 15:46 | RAD ---
PA AND LATERAL VIEWS CHEST: HISTORY: Malignant neoplasm of lower lobe of the right lung. COMPARISON: 07/09/2019. FINDINGS: The heart size is normal. The aorta is tortuous. Chronic changes in the lung young again seen. No lobar consolidation, pneumothoraces, or large effusions are noted. Old right-sided rib fractures ar e again seen. IMPRESSION: No acute process. POS: [facility]
== END 2020-03-29 12:52 | disposition home or self-care (01) ==
LOC: RAD 12:51
PROVIDERS: ATTEND Thoracic Surgery (Cardiothoracic Vascular Surgery)
DX: C34.31 Malignant neoplasm of lower lobe, right bronchus or lung (principal)
CPT/HCPCS: 71046

== ENCOUNTER 2020-11-29 13:35 | Outpatient (CLI) | payer MEDICARE ==
--- NOTE | 2020-11-29 14:21 | RAD ---
PA AND LATERAL VIEWS OF CHEST: Date: 11/29/2020 HISTORY: Malignant neoplasm of lower lobe of right lung. COMPARISON: 03/29/2020. FINDINGS: The heart size is normal. The aorta is tortuous. Chronic changes in the lung young are again seen. T here is focal increased density noted in the peripheral aspect of the right upper lung. There are deg enerative changes in the spine. Old right-sided rib fractures are again noted. IMPRESSION: New opacity in the right upper lobe should be evaluated with CT scan. POS: [facility]
== END 2020-11-29 13:36 | disposition home or self-care (01) ==
LOC: RAD 13:35
PROVIDERS: ATTEND Thoracic Surgery (Cardiothoracic Vascular Surgery)
DX: C34.31 Malignant neoplasm of lower lobe, right bronchus or lung (principal); R91.8 Other nonspecific abnormal finding of lung field
CPT/HCPCS: 71046

== ENCOUNTER 2020-12-10 13:58 | Outpatient (CLI) | payer MEDICARE | END 2020-12-10 13:59 | disposition home or self-care (01) | LOC: BICCT 13:58 | PROVIDERS: ATTEND Thoracic Surgery (Cardiothoracic Vascular Surgery) | DX: I63.20 Cerebral infarction due to unspecified occlusion or stenosis of unspecified precerebral arteries (principal); J43.9 Emphysema, unspecified; R91.1 Solitary pulmonary nodule | CPT/HCPCS: 71250 ==

== ENCOUNTER 2021-01-04 07:46 | Outpatient (CLI) | payer MEDICARE | END 2021-01-04 07:47 | disposition home or self-care (01) | LOC: PET 07:46 | PROVIDERS: ATTEND Thoracic Surgery (Cardiothoracic Vascular Surgery) | DX: C34.31 Malignant neoplasm of lower lobe, right bronchus or lung (principal); R91.8 Other nonspecific abnormal finding of lung field; I71.4 Abdominal aortic aneurysm, without rupture; I65.29 Occlusion and stenosis of unspecified carotid artery; I25.10 Atherosclerotic heart disease of native coronary artery without angina pectoris; I63.20 Cerebral infarction due to unspecified occlusion or stenosis of unspecified precerebral arteries | CPT/HCPCS: 78815; A9552 ==

== ENCOUNTER 2021-01-19 08:35 | Day surgery (SDC) | payer MEDICARE ==
[2021-01-11 13:39] VITALS: BMI 28.8
[2021-01-19 08:58] LABS: #Basophils 0.1 thou/uL (0.0-0.2); #Eosinphils 0.5 thou/uL (0.0-0.7); #Lymphocytes 1.5 thou/uL (1.20-3.40); #Monocytes 1.1 thou/uL (0.11-0.59); #Neutrophils 7.2 thou/uL (1.40-6.50); %Basophils 0.7 % (0.0-1.0); %Eosinophils 4.5 % (0.0-10.0); %Lymphocytes 14.8 % (21.0-51.0); %Monocytes 10.7 % (0.0-10.0); %Neutrophils 69.2 % (42.0-75.0); Hemoglobin 13.4 g/dL (14.0-18.0); Mean Corpuscular HGB CONC 32.2 g/dL (32.0-36.0); Mean Corpuscular Hemoglobin 30.5 pg (27.0-31.0); Mean Corpuscular Volume 94.6 fL (78.0-98.0); Mean Platelet Volume 7.6 fL (7.4-10.4); Platelet Count 207 thou/uL (130-400); RBC Distribution Width 12.7 % (11.5-14.5); Red Blood Cell (RBC) Count 4.41 mill/uL (4.70-6.10); White Blood Cell (WBC) Count 10.4 thou/uL (4.8-10.8)
[2021-01-19 09:00] LABS: PTT 31.9 sec (22.9-36.1); Prothrombin Time 13.5 sec (12.0-14.7)
[2021-01-19 11:08] VITALS: BP 129/63; TEMP 97.8
== END 2021-01-19 12:55 | disposition home or self-care (01) ==
LOC: CT 08:35
PROVIDERS: ATTEND Internal Medicine Pulmonary Disease
PROC: 0BBC3ZX Excision of Right Upper Lung Lobe, Percutaneous Approach, Diagnostic (ICD-10-PCS; principal; 2021-01-19)
DX: C34.11 Malignant neoplasm of upper lobe, right bronchus or lung (principal); I25.10 Atherosclerotic heart disease of native coronary artery without angina pectoris; E11.51 Type 2 diabetes mellitus with diabetic peripheral angiopathy without gangrene; I12.9 Hypertensive chronic kidney disease with stage 1 through stage 4 chronic kidney disease, or unspecified chronic kidney disease; E11.22 Type 2 diabetes mellitus with diabetic chronic kidney disease; N18.9 Chronic kidney disease, unspecified; G47.33 Obstructive sleep apnea (adult) (pediatric); N40.0 Benign prostatic hyperplasia without lower urinary tract symptoms; E78.5 Hyperlipidemia, unspecified; F03.90 Unspecified dementia, unspecified severity, without behavioral disturbance, psychotic disturbance, mood disturbance, and anxiety; Z86.73 Personal history of transient ischemic attack (TIA), and cerebral infarction without residual deficits; Z87.891 Personal history of nicotine dependence; Z79.02 Long term (current) use of antithrombotics/antiplatelets; Z79.82 Long term (current) use of aspirin; Z79.84 Long term (current) use of oral hypoglycemic drugs; Z79.899 Other long term (current) drug therapy; Z90.2 Acquired absence of lung [part of]; Z95.5 Presence of coronary angioplasty implant and graft
CPT/HCPCS: 32408; 71045; 77012; 81210; 81235; 81479; 85025; 85610; 85730; 88305; 88341; 88342; 88360; 88377

== ENCOUNTER 2021-07-11 12:19 | Outpatient (CLI) | payer MEDICARE | END 2021-07-11 12:20 | disposition home or self-care (01) | LOC: BICCT 12:19 | PROVIDERS: ATTEND Radiology Radiation Oncology | DX: C34.11 Malignant neoplasm of upper lobe, right bronchus or lung (principal); R16.0 Hepatomegaly, not elsewhere classified; Z92.3 Personal history of irradiation | CPT/HCPCS: 71260; 82565 ==

== ENCOUNTER 2021-11-30 10:38 | Outpatient (CLI) | payer MEDICARE | END 2021-11-30 10:39 | disposition home or self-care (01) | LOC: RAD 10:38 | PROVIDERS: ATTEND Thoracic Surgery (Cardiothoracic Vascular Surgery) | DX: C34.31 Malignant neoplasm of lower lobe, right bronchus or lung (principal); I63.20 Cerebral infarction due to unspecified occlusion or stenosis of unspecified precerebral arteries; R91.8 Other nonspecific abnormal finding of lung field | CPT/HCPCS: 71046 ==

== ENCOUNTER 2021-11-30 14:57 | Emergency (ER) | payer MEDICARE ==
[~2021-11-30 14:57] MED LIST: Iopamidol 370 76% 100 ML VIAL ONE
[2021-11-30 16:12] LABS: #Eosinphils 0.2 thou/uL (0.0-0.7); #Lymphocytes 0.8 thou/uL (1.20-3.40); #Monocytes 0.8 thou/uL (0.11-0.59); #Neutrophils 5.1 thou/uL (1.40-6.50); %Basophils 0.5 % (0.0-1.0); %Eosinophils 3.1 % (0.0-10.0); %Lymphocytes 11.6 % (21.0-51.0); %Neutrophils 73.8 % (42.0-75.0); Hemoglobin 14.4 g/dL (14.0-18.0); Mean Corpuscular HGB CONC 31.9 g/dL (32.0-36.0); Mean Corpuscular Hemoglobin 30.6 pg (27.0-31.0); Mean Platelet Volume 7.2 fL (7.4-10.4); Platelet Count 206 thou/uL (130-400); RBC Distribution Width 13.4 % (11.5-14.5); Red Blood Cell (RBC) Count 4.71 mill/uL (4.70-6.10); White Blood Cell (WBC) Count 6.8 thou/uL (4.8-10.8)
[2021-11-30 16:32] LABS: ALT (SGPT) 10 U/L (8-55); AST (SGOT) 13 U/L (5-34); Albumin 4.4 g/dL (3.4-4.8); Alkaline Phosphatase 58 U/L (40-110); Anion Gap 13 mmol/L (10-20); BUN (Urea Nitrogen) 24 mg/dL (8.4-25.7); Bilirubin, Total 0.4 mg/dL (0.2-1.2); Calc. Creatinine Clearance 0 mL/min (70-130); Calcium 9.6 mg/dL (7.8-10.44); Carbon Dioxide 27 mmol/L (23-31); Chloride 100 mmol/L (98-107); Globulin 4.1 g/dL (2.4-3.5); Glucose 183 mg/dL (83-110); Lipase 76 U/L (8-78); Protein, Total 8.5 g/dL (5.8-8.1); Sodium 136 mmol/L (136-145)
== END 2021-11-30 18:38 | disposition home or self-care (01) ==
LOC: ERS 14:57
DX: K76.9 Liver disease, unspecified (principal); I71.4 Abdominal aortic aneurysm, without rupture; R91.8 Other nonspecific abnormal finding of lung field; E11.9 Type 2 diabetes mellitus without complications; I25.2 Old myocardial infarction; C34.31 Malignant neoplasm of lower lobe, right bronchus or lung; I63.20 Cerebral infarction due to unspecified occlusion or stenosis of unspecified precerebral arteries
CPT/HCPCS: 71045; 71046; 74177; 76705; 80053; 83690; 84484; 85025; 93005; 94760; Q9967

== ENCOUNTER 2022-01-11 09:23 | Outpatient (CLI) | payer MEDICARE ==
[2022-01-11] MEDS ORDERED: Iopamidol 370 76% 100 ML VIAL ONE (09:39)
== END 2022-01-11 09:24 | disposition home or self-care (01) ==
LOC: BICCT 09:23
PROVIDERS: ATTEND Radiology Radiation Oncology
DX: C34.11 Malignant neoplasm of upper lobe, right bronchus or lung (principal); J43.2 Centrilobular emphysema; K76.9 Liver disease, unspecified; J98.11 Atelectasis; R91.8 Other nonspecific abnormal finding of lung field
CPT/HCPCS: 71260; 82565; Q9967

== ENCOUNTER 2022-05-09 08:33 | Emergency (ER) | payer MEDICARE ==
[2022-05-09 10:28] LABS: Bilirubin Negative (Negative); Blood, Urine Negative (Negative); Clarity Clear (Clear); Glucose, Urine (Dipstick) Normal (Negative); Ketone, Urine Negative (Negative); Leukocyte Negative Leu/uL (Negative); Nitrite Negative (Negative); Protein, Urine (Dipstick) 20 mg/dL (Neg-Trace); Specific Gravity, Urine 1.013 (1.002-1.036); Urobilinogen Normal mg/dL (Less than 2); pH, Urine 5.5 (5.0-9.0)
[2022-05-09 11:26] LABS: #Eosinphils 0.3 thou/uL (0.0-0.7); #Lymphocytes 0.8 thou/uL (1.20-3.40); #Monocytes 0.6 thou/uL (0.11-0.59); #Neutrophils 4.8 thou/uL (1.40-6.50); %Basophils 0.6 % (0.0-1.0); %Eosinophils 4.5 % (0.0-10.0); %Lymphocytes 11.6 % (21.0-51.0); %Monocytes 9.8 % (0.0-10.0); %Neutrophils 73.5 % (42.0-75.0); Mean Corpuscular HGB CONC 32.7 g/dL (32.0-36.0); Mean Corpuscular Hemoglobin 30.5 pg (27.0-31.0); Mean Corpuscular Volume 93.3 fL (78.0-98.0); Mean Platelet Volume 7.7 fL (7.4-10.4); Platelet Count 162 thou/uL (130-400); RBC Distribution Width 13.5 % (11.5-14.5); Red Blood Cell (RBC) Count 4.26 mill/uL (4.70-6.10); White Blood Cell (WBC) Count 6.5 thou/uL (4.8-10.8)
[2022-05-09 11:42] LABS: ALT (SGPT) 9 U/L (8-55); AST (SGOT) 15 U/L (5-34); Albumin 3.5 g/dL (3.4-4.8); Alkaline Phosphatase 53 U/L (40-110); Anion Gap 11 mmol/L (10-20); BUN (Urea Nitrogen) 21 mg/dL (8.4-25.7); Bilirubin, Total 0.6 mg/dL (0.2-1.2); CK (CPK) 97 U/L (30-200); Calc. Creatinine Clearance 0 mL/min (70-130); Calcium 9.3 mg/dL (7.8-10.44); Carbon Dioxide 28 mmol/L (23-31); Chloride 101 mmol/L (98-107); Estimated GFR 64; Globulin 3.2 g/dL (2.4-3.5); Glucose 162 mg/dL (83-110); Magnesium 1.6 mg/dL (1.6-2.6); Potassium 4.1 mmol/L (3.5-5.1); Protein, Total 6.7 g/dL (5.8-8.1); Sodium 136 mmol/L (136-145)
[2022-05-09 12:04] LABS: CKMB 5.6 ng/mL (0-6.6)
[2022-05-09 14:06] LABS: Troponin I 0.027 ng/mL (< 0.028)
== END 2022-05-09 15:15 | disposition home or self-care (01) ==
LOC: ERS 08:33
DX: I95.9 Hypotension, unspecified (principal); E11.9 Type 2 diabetes mellitus without complications; Z86.73 Personal history of transient ischemic attack (TIA), and cerebral infarction without residual deficits; Z79.82 Long term (current) use of aspirin; Z79.84 Long term (current) use of oral hypoglycemic drugs; Z79.899 Other long term (current) drug therapy
CPT/HCPCS: 36415; 70450; 71045; 80053; 81003; 82550; 82553; 83605; 83735; 83880; 84443; 84484; 85025; 87040; 93005